=== PATIENT | female | born 1960 | race Caucasian/White ===

== ENCOUNTER → 2018-12-30 14:15 | Outpatient (CLI) | payer MEDICARE, MEDICAID | END | disposition home or self-care (01) | LOC: D.MRI 14:15 | PROVIDERS: ATTEND Orthopaedic Surgery | DX: M25.551 Pain in right hip (principal) ==

== ENCOUNTER → 2019-11-17 12:53 | Outpatient (CLI) | payer MEDICARE, MEDICAID ==
[2019-11-17 13:41] LABS: BASOPHILS 0.3 % (0-2); EOSINOPHILS 2.5 % (0-7); HEMATOCRIT 46.8 % (36.0-48.0); HEMOGLOBIN 15.3 g/dL (12-16); LYMPHOCYTES 45.6 % (15-50); MCH 30.3 pg (26.0-34.0); MCHC 32.7 g/dL (31.0-37.0); MCV 92.7 fL (80.0-100.0); MEAN PLATELET VOLUME 9.3 fL (7.4-10.4); MONOCYTES 8.1 % (2-11); NEUTROPHILS 43.5 % (40-80); PLATELET COUNT 181 10x3/uL (130-400); RBC 5.05 10x6/uL (4.00-5.40); RDW 13.8 % (11.5-14.5); WBC 5.9 10x3/uL (4.8-10.8)
[2019-11-17 14:10] LABS: APTT 26.4 SECONDS (22.8-39.4); INR 0.99 (0.85-1.17)
[2019-11-17 14:24] LABS: ALBUMIN 3.6 g/dL (3.4-5.0); ANION GAP 12.2 mmol/L (8-16); BILIRUBIN - TOTAL 0.28 mg/dL (0.2-1.3); CALCIUM 8.6 mg/dL (8.5-10.1); CARBON DIOXIDE 27.5 mmol/L (21.0-32.0); CREATININE - SERUM 1.3 mg/dL (0.6-1.3); POTASSIUM - SERUM 3.7 mmol/L (3.5-5.1); PROTEIN - SERUM 6.9 g/dL (6.4-8.2)
== END | disposition home or self-care (01) ==
LOC: D.LAB 12:53
PROVIDERS: ATTEND Internal Medicine Hematology & Oncology
DX: D68.59 Other primary thrombophilia (principal); M25.559 Pain in unspecified hip; M87.859 Other osteonecrosis, unspecified femur

== ENCOUNTER 2019-12-10 05:42 | Inpatient (IN) | payer MEDICARE ==
[~2019-12-10] VITALS: Ht 170.2 cm; Wt 136.3 kg
--- NOTE | ~2019-12-10 | OP ---
PATIENT NAME: MCKINLEY ROBERTO MEDICAL RECORD: [id number] :62 LOCATION:[facility] ADMISSION DATE:12/10/19 SURGEON: LUDWIG GANT MD DATE OF OPERATION: 12/13/2019 PREOPERATIVE DIAGNOSIS: Acute cholecystitis. POSTOPERATIVE DIAGNOSES: 1. Acute gangrenous cholecystitis. 2. Hepatomegaly. PROCEDURE: 1. Laparoscopic cholecystectomy. 2. Intraoperative cholangiography without immediate surgeon interpretation. 3. A 14-gauge core needle liver biopsy. DRAINS: A 10-Occitan round fully fluted closed suction drainage system. SURGEON: Ludwig Gant MD FLEET SALES ASSOCIATE: None. BLOOD LOSS: 50 cc. ANESTHESIA: General. COMPLICATIONS: None. The risks, possible complications and alternatives to the procedure were explained to the patient. She elects to proceed. The discussion specifically included, but was not limited to, bleeding requiring emergency reoperation, infection and open procedure. OPERATIVE COURSE: The patient was conveyed to the operating room electively on 12/11/2019. General anesthesia was induced by the anesthesia staff. The abdomen was sterilely prepped and draped. A Veress needle was inserted through the skin anthony in the left upper quadrant. CO2 insufflation was begun. Once a sufficient pneumoperitoneum had been achieved, a 5-mm trocar was inserted through an incision in the right upper quadrant. During insertion of the Veress needle and the trocar, there was no apparent injury to the bowels, any intraperitoneal or retroperitoneal structures. A 5-mm trocar was inserted in the epigastrium. Another 5-mm trocar was inserted far laterally in the right upper quadrant. A 12-mm trocar was inserted through an incision at the umbilicus. An abdominal survey was undertaken. The indication for the liver biopsy was hepatomegaly. Under laparoscopic guidance, I percutaneously accessed the right upper quadrant utilizing a 14-gauge core biopsy device. Cores were obtained over the convexity of the liver. The biopsy sites were made hemostatic with electrocautery. I then advanced a cholangiogram trocar. I punctured the fundus of the gallbladder. I aspirated bile. I then injected dye. Real time cholangiographic images were obtained. These were sent to the radiologist for OPERATIVE REPORT [id number] MCKINLEY ROBERTO interpretation. I aspirated bile and removed the cholangiogram trocar. The gallbladder was grasped and retracted cephalad. The infundibulum was grasped and retracted laterally. Blunt dissection was begun in the triangle of Calot. Two cystic arteries were identified. These were clipped multiply and divided between clips. The cystic duct was quite enlarged. I examined the triangle of Calot carefully and was confident that the ductal structure that I thought was enlarged, was in fact the cystic duct. The cystic duct was going to be too large to clip. I changed out the epigastric 5-mm trocar for a 12-mm trocar. I then advanced an Endo-JASSI with a white load. I stapled across the cystic duct just proximal to the infundibulum with the Endo-JASSI type stapler utilizing a white load. The gallbladder was then excised from its bed in the liver. It was placed within a bag retrieval device and was withdrawn through the umbilical fascia defect. A 12-mm trocar was replaced at the umbilicus. CO2 insufflation was begun. Once a sufficient pneumoperitoneum had been achieved, I examined the abdomen. I irrigated and aspirated the right upper quadrant. There was no bleeding even at low pressure of 8. Through one of the right upper quadrant trocars, I advanced a 10-Occitan Johnathan drain, which was going to be an indicator drain. The Tera-Edgardo suture closure device and 0 Vicryl sutures were used to close the umbilicus. There was an umbilical hernia defect which was not incarcerated. Also, some diastasis of the rectus muscles inferior to the umbilicus. All trocars were removed and the abdomen desufflated. The skin at the upper trocar site was closed with interrupted intracuticular 3-0 Vicryls. The skin at the umbilicus was closed with interrupted 4-0 Vicryl Rapide sutures. The patient was then extubated and conveyed to post-anesthesia care unit where she was in stable condition. TRANSINT:[id number] Voice Confirmation ID: [id number] DOCUMENT ID: [id number] LUDWIG GANT MD CC: STONEY NAYLOR [id number] DICTATION DATE: 12/13/191415 SHIPFITTER APPRENTICE: 12/13/192158 ADM IN [facility] [facility] [address] [place] [address]
[2019-12-10 08:00] VITALS: BP 128/85
[2019-12-10 08:25] LABS: CALC OSMOLALITY 280 mosm/kg (275-300); CARBON DIOXIDE 28.9 mmol/L (21.0-32.0); CHLORIDE - SERUM 104 mmol/L (98-107); CREATININE - SERUM 0.8 mg/dL (0.6-1.3); GLUCOSE 167 mg/dL (74-106); POTASSIUM - SERUM 4.3 mmol/L (3.5-5.1); SODIUM 140 mmol/L (136-145); UREA NITROGEN 7 mg/dL (7-18); eGFR NON AFRICAN AMERICAN 78 mL/min (90-120)
[2019-12-10 08:31] LABS: ALBUMIN 3.3 g/dL (3.4-5.0); ALKALINE PHOSPHATASE 101 U/L (30-120); ALT (SGPT) 21 U/L (10-68); AMYLASE - SERUM 26 U/L (25-115); BILIRUBIN - TOTAL 0.31 mg/dL (0.2-1.3); LIPASE 61 U/L (73-393); PROTEIN - SERUM 6.9 g/dL (6.4-8.2)
[2019-12-10 08:44] LABS: BASOPHILS 0 % (0-2); EOSINOPHILS 0 % (0-7); HEMATOCRIT 44.9 % (36.0-48.0); HEMOGLOBIN 14.8 g/dL (12-16); LYMPHOCYTES 9.9 % (15-50); MCH 30.3 pg (26.0-34.0); MCV 91.8 fL (80.0-100.0); MEAN PLATELET VOLUME 9.4 fL (7.4-10.4); MONOCYTES 2.1 % (2-11); PLATELET COUNT 145 10x3/uL (130-400); RBC 4.89 10x6/uL (4.00-5.40); RDW 13.7 % (11.5-14.5)
[2019-12-10 10:00] VITALS: BP 146/90
[2019-12-10 12:00] VITALS: BP 137/81
[2019-12-10] MEDS ORDERED: NORVASC10 MG PO (18:11)
[2019-12-10] MEDS ORDERED: DEPAKOTE250 MG PO (18:12)
[2019-12-10] MEDS ORDERED: NORTRIPTYLINE H50 MG PO (18:19)
[2019-12-10] MEDS ORDERED: SYNTHROID125 MCG PO (18:20)
[2019-12-10] MEDS ORDERED: SEROQUEL400 MG PO (18:20)
[2019-12-10] MEDS ORDERED: TRAZODONE TAB 100 PO (18:21)
[2019-12-10] MEDS ORDERED: TRINTELLIX20 MG PO (18:22)
[2019-12-10] MEDS ORDERED: AMBIEN5 MG PO (18:23)
[2019-12-10] MEDS ORDERED: VALIUM5 MG PO (18:23)
[2019-12-10 19:13] LABS: APTT 23.8 SECONDS (22.8-39.4); INR 0.97 (0.85-1.17); PROTIME 12.8 SECONDS (11.6-15.0)
[2019-12-10 20:00] VITALS: BP 131/80
--- NOTE | 2019-12-10 20:00 | NUR ---
PATIENT RESTING IN BED WATCHING TV. NO S/S OF ACUTE DISTRESS. NO C/O AT THIS TIME. PATIENT HAS RIGHT AC IV, NORMAL SALINE @ 125 ML/HR. IV IS PATENT WITHOUT REDNESS, SWELLING, OR TENDERNESS. PATIENT HAS BRUISING TO BILAT ARMS. PATIENT IS UP AD LINH TO BATHROOM. CALL LIGHT WITHIN REACH. WILL CONTINUE TO MONITOR.
--- NOTE | 2019-12-10 20:01 | NUR ---
PATIENT IN BED, NO S/S OF ACUTE DISTRESS. PATIENT C/O NAUSEA AND PAIN. I CHECKED THE EMAR AND BOTH HER ZOFRAN Q4, GIVEN AT 1800, AND MORPHINE Q3, GIVEN 1801. I TOLD PATIENT THAT SHE WOULDN'T BE ABLE TO HAVE ANYMORE UNTIL 2100 AND 2200. PATIENT PROCEEDED TO TELL ME THAT SHE WASN'T GIVEN THOSE MEDICATIONS AND THAT THE NURSE BEFORE ME LIED. I TOLD HER THAT THERE WAS NOTHING I COULD DO BUT TALK TO THE DAYSHIFT NURSE AND VERIFY THAT SHE GAVE THEM. NIKOLAI DOUGLASS, VERIFIED THAT SHE HAD GIVEN BOTH THE ZOFRAN AND MORPHINE. CALL LIGHT WITHIN REACH. WILL CONTINUE TO MONITOR.
[2019-12-11 03:35] VITALS: BP 131/80; BMI 44.7
[2019-12-11 04:00] VITALS: BP 128/83
--- NOTE | 2019-12-11 05:13 | NUR ---
I have reviewed this patient and I concur with the Shift Assessment completed by the Licensed Practical Nurse today this shift.
[2019-12-11 07:06] LABS: BASOPHILS 0.1 % (0-2); EOSINOPHILS 0.3 % (0-7); HEMATOCRIT 42.7 % (36.0-48.0); HEMOGLOBIN 13.5 g/dL (12-16); IMMATURE GRANULOCYTES 0.3 % (0-5); LYMPHOCYTES 19.2 % (15-50); MCH 29.8 pg (26.0-34.0); MCHC 31.6 g/dL (31.0-37.0); MEAN PLATELET VOLUME 9.3 fL (7.4-10.4); MONOCYTES 10.6 % (2-11); NEUTROPHILS 69.5 % (40-80); PLATELET COUNT 171 10x3/uL (130-400); RBC 4.53 10x6/uL (4.00-5.40); RDW 14.3 % (11.5-14.5); WBC 7.2 10x3/uL (4.8-10.8)
[2019-12-11 07:15] LABS: MCV 94.3 fL (80.0-100.0)
[2019-12-11 07:34] LABS: ALBUMIN 2.9 g/dL (3.4-5.0); ALKALINE PHOSPHATASE 90 U/L (30-120); BILIRUBIN - TOTAL 0.46 mg/dL (0.2-1.3); CALCIUM 7.9 mg/dL (8.5-10.1); CARBON DIOXIDE 28.2 mmol/L (21.0-32.0); CHLORIDE - SERUM 108 mmol/L (98-107); CREATININE - SERUM 0.8 mg/dL (0.6-1.3); MAGNESIUM - SERUM 2.3 mg/dL (1.8-2.4); POTASSIUM - SERUM 3.8 mmol/L (3.5-5.1); PROTEIN - SERUM 6.2 g/dL (6.4-8.2); SODIUM 143 mmol/L (136-145); UREA NITROGEN 8 mg/dL (7-18); eGFR NON AFRICAN AMERICAN 78 mL/min (90-120)
[2019-12-11 07:38] LABS: ALT (SGPT) 47 U/L (10-68); CALC OSMOLALITY 282 mosm/kg (275-300); GLUCOSE 104 mg/dL (74-106)
--- NOTE | 2019-12-11 08:10 | NUR ---
PT RESTING QUIETLY IN BED WITH EYES CLOSED. EASILY AROUSED STAFF ENTERS ROOM. REPORTS PAIN 4/10 AT THIS TIME, BUT DOES STATE PAIN BETTER CONTROLLED. IV TO RIGHT AC WITH NS @ 125ML/HR INFUSING VIA PUMP. SITE WITHOUT REDNESS OR EDEMA. DENIES FURTHER NEEDS AT THIS TIME. CL WITHIN REACH. ENCOURAGED TO CALL WITH NEEDS. CONTINUE POC
[2019-12-11 10:59] VITALS: BP 129/83
[2019-12-11 12:57] VITALS: Ht 170.2 cm; Wt 136.3 kg
[2019-12-11 13:02] VITALS: BP 114/69
[2019-12-11 18:27] VITALS: BP 114/58
[2019-12-11 20:00] VITALS: BP 119/75
--- NOTE | 2019-12-11 20:00 | NUR ---
PATIENT RESTING IN BED WITH DAUGHTER AT [facility]. NO S/S OF ACUTE DISTRESS. NO C/O AT THIS TIME. PATIENT IS ON 4L NASAL CANNULA. PATIENT HAS A RIGHT AC, NORMAL SALINE @ 125 ML/HR. IV IS PATENT WITHOUT REDNESS, SWELLING, OR TENDERNESS. PATIENT HAS 4 LAP SITES AND A RIGHT JEFFERSON DRAIN. PATIENT BELLY BUTTON DID HAVE SOME BLEEDING FROM LAP SITE THAT DID STOP. PATIENT IS UP WITH ASSISTANCE TO THE BATHROOM. CALL LIGHT WITHIN REACH. WILL CONTINUE TO MONITOR.
[2019-12-12 03:07] LABS: BILIRUBIN NEGATIVE (NEGATIVE); GLUCOSE NEGATIVE (NEGATIVE); KETONE SMALL mg/dL (NEGATIVE); NITRITE NEGATIVE (NEGATIVE); UROBILINOGEN NORMAL (NORMAL)
--- NOTE | 2019-12-12 05:00 | NUR ---
I have reviewed this patient and I concur with the Shift Assessment completed by the Licensed Practical Nurse today this shift.
[2019-12-12 07:53] LABS: BASOPHILS 0.1 % (0-2); EOSINOPHILS 0 % (0-7); HEMATOCRIT 39.9 % (36.0-48.0); HEMOGLOBIN 12.7 g/dL (12-16); IMMATURE GRANULOCYTES 0.1 % (0-5); MCH 30.2 pg (26.0-34.0); MCHC 31.8 g/dL (31.0-37.0); MEAN PLATELET VOLUME 9.2 fL (7.4-10.4); MONOCYTES 12.2 % (2-11); NEUTROPHILS 74.6 % (40-80); PLATELET COUNT 156 10x3/uL (130-400); RDW 14.3 % (11.5-14.5); WBC 8.9 10x3/uL (4.8-10.8)
[2019-12-12 08:09] LABS: ALBUMIN 2.6 g/dL (3.4-5.0); ANION GAP 8.7 mmol/L (8-16); BILIRUBIN - TOTAL 0.42 mg/dL (0.2-1.3); CALCIUM 7.4 mg/dL (8.5-10.1); CARBON DIOXIDE 29.2 mmol/L (21.0-32.0); CREATININE - SERUM 0.9 mg/dL (0.6-1.3); POTASSIUM - SERUM 3.9 mmol/L (3.5-5.1); PROTEIN - SERUM 5.8 g/dL (6.4-8.2)
--- NOTE | 2019-12-12 08:22 | NUR ---
RESTING IN BED, NO DISTRESS NOTED, CURING BIN OPERATOR STATES THAT PT REFUSEDS TO GET UP, IS USING BEDPAN, CONT TO MONITOR AND GET PT UP TODAY
[2019-12-12 09:57] VITALS: BP 129/79
[2019-12-12 14:09] VITALS: BP 127/82
[2019-12-12 17:04] VITALS: BP 119/66
[2019-12-12 21:00] VITALS: BP 104/65
[2019-12-13 07:00] LABS: ALBUMIN 2.3 g/dL (3.4-5.0); ANION GAP 12.6 mmol/L (8-16); BASOPHILS 0.2 % (0-2); BILIRUBIN - TOTAL 0.54 mg/dL (0.2-1.3); CALCIUM 7.8 mg/dL (8.5-10.1); CARBON DIOXIDE 26.2 mmol/L (21.0-32.0); CREATININE - SERUM 0.9 mg/dL (0.6-1.3); EOSINOPHILS 0.7 % (0-7); HEMATOCRIT 39.6 % (36.0-48.0); HEMOGLOBIN 12.7 g/dL (12-16); IMMATURE GRANULOCYTES 0.2 % (0-5); LYMPHOCYTES 19.8 % (15-50); MAGNESIUM - SERUM 2.1 mg/dL (1.8-2.4); MCH 30.3 pg (26.0-34.0); MCHC 32.1 g/dL (31.0-37.0); MCV 94.5 fL (80.0-100.0); MEAN PLATELET VOLUME 9.8 fL (7.4-10.4); MONOCYTES 10.5 % (2-11); NEUTROPHILS 68.6 % (40-80); PLATELET COUNT 169 10x3/uL (130-400); POTASSIUM - SERUM 3.8 mmol/L (3.5-5.1); PROTEIN - SERUM 5.8 g/dL (6.4-8.2); RBC 4.19 10x6/uL (4.00-5.40); RDW 14.3 % (11.5-14.5); WBC 8.7 10x3/uL (4.8-10.8)
[2019-12-13 09:01] VITALS: BP 123/76
--- NOTE | 2019-12-13 09:50 | NUR ---
RESTING IN BED, NO DISTRESS NOTED, STATES THAT SHE WISHES SHE COULD GET UP, BUT PT JUST ROLLS ABOUT IN BED, STATES THAT SHE HASNT PASSED ANY GAS, ENC PT TO GET UP AND MOVE ABOUT TO HELP WITH GAS
[2019-12-13 12:25] VITALS: BP 127/74
--- NOTE | 2019-12-13 12:59 | NUR ---
HAS BEEN IN BED ALL DAY, REFUSED TO GET UP FOR LUNCH
--- NOTE | 2019-12-13 14:30 | MORECARE ---
CASE MANAGEMENT DISCHARGE SUMMARY PATIENT: MCKINLEY ROBERTO UNIT: [id number] ADM DATE: 12/10/19 AGE: 59 : 62 SEX: F ROOM/BED: D.2201 AUTHOR: ELVA KENDRICK PHYSICIAN: REFERRING PHYSICIAN: STONEY NAYLOR DO DATE OF SERVICE: 12/13/19 Discharge Plan Patient Name: MCKINLEY ROBERTO [facility] [facility] 1960 Planned Disposition: Home Anticipated Discharge Date: Discharge Date: Expected LOS: Initial Reviewer: [email or web address] Initial Review Date: 12/10/2019 Generated: 12/13/19 3:30 pm DCPIA - Discharge Planning Initial Assessment Updated by [email or web address]: Roshni Esparza on 12/13/19 2:28 pm * Is the patient Alert and Oriented? Yes * How many steps to enter\exit or inside your home? RAMP/1 * PCP [facility] * Pharmacy [facility] [place] * Preadmission Environment Home Alone * ADLs Independent * Equipment Rolling Walker * List name and contact numbers for known caregivers / representatives who currently or will assist patient after discharge: PRAKASH (DTR) [phone] * Verbal permission to speak to the caregivers and representatives has been obtained from the patient. Yes * Community resources currently utilized None * Additional services required to return to the preadmission environment? Yes * Can the patient safely return to the preadmission environment? Yes * Has this patient been hospitalized within the prior 30 days at any hospital? No Patient Name: MCKINLEY ROBERTO Page [id number] at 1430 All edits/amendments must be made on the electronic document DICTATION DATE: 12/13/19 1430 BILL CUTTER: ELENO 12/13/19 1430 RPT#: [id number] DC DATE: STATUS: ADM IN [facility] [address] [place] [address] END OF REPORT
--- NOTE | 2019-12-13 14:37 | MORECARE ---
CASE MANAGEMENT DISCHARGE SUMMARY PATIENT: MCKINLEY ROBERTO UNIT: [id number] ADM DATE: 12/10/19 AGE: 59 : 62 SEX: F ROOM/BED: D.2201 AUTHOR: ELVA KENDRICK PHYSICIAN: REFERRING PHYSICIAN: STONEY NAYLOR DO DATE OF SERVICE: 12/13/19 Discharge Plan Patient Name: MCKINLEY ROBERTO Facility: [facility]:[place] : 1960 Planned Disposition: Home Anticipated Discharge Date: Discharge Date: Expected LOS: Initial Reviewer: [email or web address] Initial Review Date: 12/10/2019 Generated: 12/13/19 3:36 pm Comments DCP- Discharge Planning Updated by [email or web address]: Roshni Esparza on 12/13/19 1:[address] Patient Name: MCKINLEY ROBERTO Admission Status: ER Accout number: [id number] Admission Date: 12-10-2019 : 1960 Admission Diagnosis: Attending: STONEY NAYLOR Current LOS: 3 Anticipated DC Date: Planned Disposition: Home Primary Insurance: MEDICARE A & B Discharge Planning Comments: CM met with patient to complete initial dc planning assessment. CM educated patient on the CM role and verbal consent given by patient to complete assessment. CM verified patient's address, phone number, and emergency contact phone numbers. Patient lives at home alone and prior to admission she was independent with her ADL's/ States she has a rollator. States she is disabled and would like assistance at home. Pt is currently on 3.5 liters of continuous oxygen. CM anticipates the need for home and portable oxygen use. [facility] CM provided pt with number to area on ageing. At discharge patient plans to return home and feels this is a safe discharge. CM discussed availability of home health, rehab services, and medical equipment. Pt is in agreement for [facility] with physical therapy - JENIFFER signed. Patient denies other known discharge needs at this time. Transportation provider at discharge will be Yadi. CM will continue to follow and will assist as needed with dc plans/needs. Produce Production Team Member: Roshni Esparza DCPIA - Discharge Planning Initial Assessment Updated by [id number]: Roshni Esparza on 12/13/19 2:28 pm * Is the patient Alert and Oriented? Yes * How many steps to enter\exit or inside your home? RAMP/1 * [facility]CP [facility] * Pharmacy [facility] IN [place] * Preadmission Environment Home Alone * ADLs Independent * Equipment Rolling Walker * List name and contact numbers for known caregivers / representatives who currently or will assist patient after discharge: YADI (DTR) [phone] * Verbal permission to speak to the caregivers and representatives has been obtained from the patient. Yes * Community resources currently utilized None * Additional services required to return to the preadmission environment? Yes * Can the patient safely return to the preadmission environment? Yes * Has this patient been hospitalized within the prior 30 days at any hospital? No Coverage Notice Reviewer: [id number] Julissa Esparza Notice Issued Date-Time: 12/13/2019 14:00 Notice Type: Patient Choice Letter Notice Delivered To: Patient Relationship to Patient: Diploma Dental Assistant Name: Delivery Method: HAND - Hand Delivered Ursula Days: Prior Verbal Notification: Yes Recipient Understood Notice: Yes Recipient Signature: Yes Med Rec Note Co-signed by Attending: Coverage Notice Comment: [facility] for home and portable oxygen Last DP export: 12/13/19 1:30 p Patient Name: MCKINLEY ROBERTO Page [phone] at 1437 All edits/amendments must be made on the electronic document DICTATION DATE: 12/13/191436 ELECTRICIAN APPRENTICE POWERHOUSE: ELENO 12/13/19 1437 RPT#: [id number] DC DATE: STATUS: ADM IN [facility] [address] [place] [address] END OF REPORT
[2019-12-13 16:00] VITALS: BP 123/83
--- NOTE | 2019-12-13 19:20 | NUR ---
UP IN CHAIR, FAMILY IN ROOM
--- NOTE | 2019-12-13 19:51 | NUR ---
patient alert and orented with family at bedside. JEFFERSON drain removed per orders, tolarated well. no bleeding or discharge. dressing applied.
[2019-12-13 20:05] VITALS: BP 115/75
[2019-12-14] VITALS: BP 118/70
--- NOTE | 2019-12-14 03:54 | NUR ---
PATIENT REFUSED AM LABS.
[2019-12-14 04:00] VITALS: BP 121/74
--- NOTE | 2019-12-14 07:54 | NUR ---
ALERT AND ORIENTED. LUNGS CLEAR BILATERALLY. HEART SOUNDS S1 AND S2 HEARD IN ALL RILEY. BOWEL SOUNDS ACTIVE X 4. IV TO LEFT AC PATENT WITHOUT REDNESS. DENIES NEEDS. BED LOW. CALL POLANCO AND PERSONAL ITEMS IN REACH. WILL CONTINUE TO MONITOR.
[2019-12-14 08:39] VITALS: BP 137/82
[2019-12-14] MEDS ORDERED: ULTRAM50 MG PO (10:13)
[2019-12-14] MEDS ORDERED: COLACE100 MG PO (10:13)
--- NOTE | 2019-12-14 10:42 | NUR ---
PATIENT FAMILY MEMBER IN ROOM STATES PATIENT NEEDS TO DC SOON POSSIBLE D/T FAMILY MEMBER HAS TO BE AT WORK AT 1500 AND LIVES THREE HOURS AWAY. DEMOND WYATT PAGED.
[2019-12-14] MEDS ORDERED: ZITHROMAX250 MG PO (10:50)
--- NOTE | 2019-12-14 11:04 | NUR ---
RESTING RA 02 SAT 88% RESTING 20 SAT ON 2L/NC 95%
--- NOTE | 2019-12-14 11:04 | NUR ---
RT IN ROOM WITH PATIENT STATES O2 88% ON ROOM AIR AT REST. 95% ON 2L NC. HOME O2 TEST PLACED ON CHART.
[2019-12-14 12:29] VITALS: BP 115/83
--- NOTE | 2019-12-14 13:47 | NUR ---
PT RESTING COMFORTABLY IN BED. HUNG IV FLUIDS AND GAVE LOVENOX INJECTION. DENIES ANY NEEDS. BED IN LOWEST POSITION, BED RAILS X2, CALL LIGHT WITHIN REACH. WILL CONTINUE TO MONITOR.
--- NOTE | 2019-12-14 13:56 | MORECARE ---
CASE MANAGEMENT DISCHARGE SUMMARY PATIENT: MCKINLEY ROBERTO UNIT: [id number] ADM DATE: 12/10/19 AGE: 59 : 62 SEX: F ROOM/BED: D.2201 AUTHOR: MIREILLE,DOC PHYSICIAN: REFERRING PHYSICIAN: STONEY NAYLOR DO DATE OF SERVICE: 12/14/19 Discharge Plan Patient Name: MCKINLEY ROBERTO Facility: [facility]:[place] : 1960 Planned Disposition: Home Anticipated Discharge Date: Discharge Date: Expected LOS: Initial Reviewer: [email or web address] Initial Review Date: 12/10/2019 Generated: 12/14/19 2:55 pm Comments DCP- Discharge Planning Updated by [email or web address]: Diann Macdonald on 12/14/19 12:[address] CM met with patient to assess discuss discharge planning needs. She did qualify for home O2 and Portability. I will get that ordered for her. IMM served and explained. She will be discharging in the morning. DCP- Discharge Planning Updated by [email or web address]: Roshni Esparza on 12/13/19 1:[address] Patient Name: MCKINLEY ROBERTO Admission Status: ER Accout number: [id number] Admission Date: 12-10-2019 : 1960 Admission Diagnosis: Attending: STONEY NAYLOR Current LOS: 3 Anticipated DC Date: Planned Disposition: Home Primary Insurance: MEDICARE A & B Discharge Planning Comments: CM met with patient to complete initial dc planning assessment. CM educated patient on the CM role and verbal consent given by patient to complete assessment. CM verified patient's address, phone number, and emergency contact phone numbers. Patient lives at home alone and prior to admission she was independent with her ADL's/ States she has a rollator. States she is disabled and would like assistance at home. Pt is currently on 3.5 liters of continuous oxygen. CM anticipates the need for home and portable oxygen use. JENIFFER verbalized for [facility]. CM provided pt with number to area on ageing. At discharge patient plans to return home and feels this is a safe discharge. CM discussed availability of home health, rehab services, and medical equipment. Pt is in agreement for [facility] with physical therapy - JENIFFER signed. Patient denies other known discharge needs at this time. Transportation provider at discharge will be Yadi. CM will continue to follow and will assist as needed with dc plans/needs. Tongue Lining Stitcher: Roshni Esparza DCPIA - Discharge Planning Initial Assessment Updated by [email or web address]: Roshni Esparza on 12/13/19 2:28 pm * Is the patient Alert and Oriented? Yes * How many steps to enter\exit or inside your home? RAMP/1 * [facility]CP [facility] * Pharmacy [facility] [place] * Preadmission Environment Home Alone * ADLs Independent * Equipment Rolling Walker * List name and contact numbers for known caregivers / representatives who currently or will assist patient after discharge: YADI (DTR) [phone] * Verbal permission to speak to the caregivers and representatives has been obtained from the patient. Yes * Community resources currently utilized None * Additional services required to return to the preadmission environment? Yes * Can the patient safely return to the preadmission environment? Yes * Has this patient been hospitalized within the prior 30 days at any hospital? No Coverage Notice Reviewer: [id number] - Roshni Esparza Notice Issued Date-Time: 12/13/2019 14:00 Notice Type: Patient Choice Letter Notice Delivered To: Patient Relationship to Patient: Light Industrial Supervisor Name: Delivery Method: HAND - Hand Delivered Ursula Days: Prior Verbal Notification: Yes Recipient Understood Notice: Yes Recipient Signature: Yes Med Rec Note Co-signed by Attending: Coverage Notice Comment: [facility] for home and portable oxygen Last DP export: 12/13/19 1:37 p Patient Name: MCKINLEY ROBERTO Page [phone] at 1356 All edits/amendments must be made on the electronic document DICTATION DATE: 12/14/19 1354 RUBBER CALENDER HELPER: ELENO 12/14/19 1355 RPT#: [id number] DC DATE: STATUS: ADM IN [facility] [address] [place] [address] END OF REPORT
--- NOTE | 2019-12-14 14:03 | MORECARE ---
CASE MANAGEMENT DISCHARGE SUMMARY PATIENT: MCKINLEY ROBERTO UNIT: [id number] ADM DATE: 12/10/19 AGE: 59 : 62 SEX: F ROOM/BED: D.2201 AUTHOR: MIERILLEDOC PHYSICIAN: REFERRING PHYSICIAN: STONEY NAYLOR DO DATE OF SERVICE: 12/14/19 Discharge Plan Patient Name: MCKINLEY ROBERTO Facility: [facility]:[place] : 1960 Planned Disposition: Home Anticipated Discharge Date: Discharge Date: Expected LOS: Initial Reviewer: [email or web address] Initial Review Date: 12/10/2019 Generated: 12/14/19 3:03 pm Comments DCP- Discharge Planning Updated by [email or web address]: Diann Macdonald on 12/14/19 12:[address] I also asked the patient about a walker, she stated that she already has one ordered and she just needs to go pick it up. DCP- Discharge Planning Updated by [email or web address]: Diann Macdonald on 12/14/19 12:[address] CM met with patient to assess discuss discharge planning needs. She did qualify for home O2 and Portability. I will get that ordered for her. IMM served and explained. She will be discharging in the morning. DCP- Discharge Planning Updated by [email or web address]: Roshni Esparza on 12/13/19 1:[address] Patient Name: MCKINLEY ROBERTO Admission Status: ER Accout number: [id number] Admission Date: 12-10-2019 : 1960 Admission Diagnosis: Attending: STONEY NAYLOR Current LOS: 3 Anticipated DC Date: Planned Disposition: Home Primary Insurance: MEDICARE A & B Discharge Planning Comments: CM met with patient to complete initial dc planning assessment. CM educated patient on the CM role and verbal consent given by patient to complete assessment. CM verified patient's address, phone number, and emergency contact phone numbers. Patient lives at home alone and prior to admission she was independent with her ADL's/ States she has a rollator. States she is disabled and would like assistance at home. Pt is currently on 3.5 liters of continuous oxygen. CM anticipates the need for home and portable oxygen use. JENIFFER verbalized for [facility]. CM provided pt with number to area on ageing. At discharge patient plans to return home and feels this is a safe discharge. CM discussed availability of home health, rehab services, and medical equipment. Pt is in agreement for [facility] with physical therapy - JENIFFER signed. Patient denies other known discharge needs at this time. Transportation provider at discharge will be Yadi. CM will continue to follow and will assist as needed with dc plans/needs. Senior Business Architect: Roshni Esparza DCPIA - Discharge Planning Initial Assessment Updated by [id number]: Roshni Esparza on 12/13/19 2:28 pm * Is the patient Alert and Oriented? Yes * How many steps to enter\exit or inside your home? RAMP/1 * [facility]CP [facility] * Pharmacy [facility] [place] * Preadmission Environment Home Alone * ADLs Independent * Equipment Rolling Walker * List name and contact numbers for known caregivers / representatives who currently or will assist patient after discharge: YADI (DTR) [phone] * Verbal permission to speak to the caregivers and representatives has been obtained from the patient. Yes * Community resources currently utilized None * Additional services required to return to the preadmission environment? Yes * Can the patient safely return to the preadmission environment? Yes * Has this patient been hospitalized within the prior 30 days at any hospital? No Coverage Notice Reviewer: [id number] - Roshni Esparza Notice Issued Date-Time: 12/13/2019 14:00 Notice Type: Patient Choice Letter Notice Delivered To: Patient Relationship to Patient: High School Art Teacher Name: Delivery Method: HAND - Hand Delivered Ursula Days: Prior Verbal Notification: Yes Recipient Understood Notice: Yes Recipient Signature: Yes Med Rec Note Co-signed by Attending: Coverage Notice Comment: [facility] with PT in [facility] for home and portable oxygen Reviewer: [id number] - Diann Macdonald Notice Issued Date-Time: 12/14/2019 12:50 Notice Type: IM Admission Notice Notice Delivered To: Patient Relationship to Patient: High School Art Teacher Name: Delivery Method: HAND - Hand Delivered Ursula Days: Prior Verbal Notification: Recipient Understood Notice: Yes Recipient Signature: Yes Med Rec Note Co-signed by Attending: Coverage Notice Comment: Last DP export: 12/14/19 12:56 p Patient Name: MCKINLEY ROBERTO Page [phone] at 1403 All edits/amendments must be made on the electronic document DICTATION DATE: 12/14/191402 IN FLIGHT TECHNICIAN: ELENO 12/14/191402 RPT#: [id number] DC DATE: STATUS: ADM IN [facility] [address] [place] [address] END OF REPORT
--- NOTE | 2019-12-14 14:20 | MORECARE ---
CASE MANAGEMENT DISCHARGE SUMMARY PATIENT: MCKINLEY ROBERTO UNIT: [id number] ADM DATE: 12/10/19 AGE: 59 : 62 SEX: F ROOM/BED: D.2201 AUTHOR: MIREILLEDOC PHYSICIAN: REFERRING PHYSICIAN: STONEY NAYLOR DO DATE OF SERVICE: 12/14/19 Discharge Plan Patient Name: MCKINLEY ROBERTO Facility: [facility]:[place] : 1960 Planned Disposition: Home Anticipated Discharge Date: Discharge Date: Expected LOS: Initial Reviewer: [email or web address] Initial Review Date: 12/10/2019 Generated: 12/14/19 3:19 pm Comments DCP- Discharge Planning Updated by [email or web address]: Diann Macdonald on 12/14/19 12:[address] I also asked the patient about a walker, she stated that she already has one ordered and she just needs to go pick it up. DCP- Discharge Planning Updated by [email or web address]: Diann Macdonald on 12/14/19 12:[address] CM met with patient to assess discuss discharge planning needs. She did qualify for home O2 and Portability. I will get that ordered for her. IMM served and explained. She will be discharging in the morning. DCP- Discharge Planning Updated by [email or web address]: Roshni Esparza on 12/13/19 1:[address] Patient Name: MCKINLEY ROBERTO Admission Status: ER Accout number: [id number] Admission Date: 12-10-2019 : 1960 Admission Diagnosis: Attending: STONEY NAYLOR Current LOS: 3 Anticipated DC Date: Planned Disposition: Home Primary Insurance: MEDICARE A & B Discharge Planning Comments: CM met with patient to complete initial dc planning assessment. CM educated patient on the CM role and verbal consent given by patient to complete assessment. CM verified patient's address, phone number, and emergency contact phone numbers. Patient lives at home alone and prior to admission she was independent with her ADL's/ States she has a rollator. States she is disabled and would like assistance at home. Pt is currently on 3.5 liters of continuous oxygen. CM anticipates the need for home and portable oxygen use. JENIFFER verbalized for [employer]. CM provided pt with number to area on ageing. At discharge patient plans to return home and feels this is a safe discharge. CM discussed availability of home health, rehab services, and medical equipment. Pt is in agreement for [facility] with physical therapy - JENIFFER signed. Patient denies other known discharge needs at this time. Transportation provider at discharge will be Yadi. CM will continue to follow and will assist as needed with dc plans/needs. Substitute Nurse: Roshni Esparza DCPIA - Discharge Planning Initial Assessment Updated by [email or web address]: Roshni Esparza on 12/13/19 2:28 pm * Is the patient Alert and Oriented? Yes * How many steps to enter\exit or inside your home? RAMP/1 * PCP [facility] * Pharmacy [facility] IN [place] * Preadmission Environment Home Alone * ADLs Independent * Equipment Rolling Walker * List name and contact numbers for known caregivers / representatives who currently or will assist patient after discharge: YADI (DTR) [phone] * Verbal permission to speak to the caregivers and representatives has been obtained from the patient. Yes * Community resources currently utilized None * Additional services required to return to the preadmission environment? Yes * Can the patient safely return to the preadmission environment? Yes * Has this patient been hospitalized within the prior 30 days at any hospital? No External Providers External Provider: Lila Next Contact Date: Service Request Date: Service Type: Resolution: Reviewer: Comments: External Provider: MARY [facility] Next Contact Date: Service Request Date: Service Type: Resolution: Reviewer: Comments: Coverage Notice Reviewer: [id number] - Roshni Esparza Notice Issued Date-Time: 12/13/2019 14:00 Notice Type: Patient Choice Letter Notice Delivered To: Patient Relationship to Patient: Fur Dressing Supervisor Name: Delivery Method: HAND - Hand Delivered Ursula Days: Prior Verbal Notification: Yes Recipient Understood Notice: Yes Recipient Signature: Yes Med Rec Note Co-signed by Attending: Coverage Notice Comment: [facility] with PT in [facility] for home and portable oxygen Reviewer: [email or web address] Julissa Macdonald Notice Issued Date-Time: 12/14/2019 12:50 Notice Type: IM Admission Notice Notice Delivered To: Patient Relationship to Patient: Fur Dressing Supervisor Name: Delivery Method: HAND - Hand Delivered Ursula Days: Prior Verbal Notification: Recipient Understood Notice: Yes Recipient Signature: Yes Med Rec Note Co-signed by Attending: Coverage Notice Comment: Last DP export: 12/14/19 1:03 p Patient Name: MCKINLEY ROBERTO Page [id number] at 1420 All edits/amendments must be made on the electronic document DICTATION DATE: 12/14/191418 RUBBER PRESS TENDER: ELENO 12/14/191418 RPT#: [id number] DC DATE: STATUS: ADM IN [facility] [address] [place] [address] END OF REPORT
[2019-12-14 17:15] VITALS: BP 142/86
--- NOTE | 2019-12-14 19:45 | NUR ---
A&O X 4. PAIN 7/10 TO LLQ OF ABDOMEN. 5 LAP SITES TO ABD, CDI. PASSING GAS, BUT NO BM. NO FURTHER NEEDS VOICED, CTM.
[2019-12-14 20:00] VITALS: BP 141/83
--- NOTE | 2019-12-15 02:55 | NUR ---
I have reviewed this patient and I concur with the Shift Assessment completed by the Licensed Practical Nurse today this shift.
[2019-12-15 04:30] VITALS: BP 127/89
[2019-12-15 08:00] VITALS: BP 119/80
--- NOTE | 2019-12-15 10:19 | MORECARE ---
CASE MANAGEMENT DISCHARGE SUMMARY PATIENT: MCKINLEY ROBERTO UNIT: [id number] ADM DATE: 12/10/19 AGE: 59 : 62 SEX: F ROOM/BED: D.2201 AUTHOR: ELVA KENDRICK PHYSICIAN: REFERRING PHYSICIAN: STONEY NAYLOR DO DATE OF SERVICE: 12/15/19 Discharge Plan Patient Name: MCKINLEY ROBERTO Facility: [facility]:[place] : 1960 Planned Disposition: Home Anticipated Discharge Date: Discharge Date: Expected LOS: Initial Reviewer: [email or web address] Initial Review Date: 12/10/2019 Generated: 12/15/19 11:19 am Comments DCP- Discharge Planning Updated by [email or web address]: Diann Renae on 12/15/19 9:[address] Patient will be discharging home with [facility] in [place]. She also will get O2 from [facility]. They will deliver it to the hospital. I have called Jade at [facility] to give her a physical address [address] [place] [address] DCP- Discharge Planning Updated by [email or web address]: Diann Renae on 12/14/19 12:[address] I also asked the patient about a walker, she stated that she already has one ordered and she just needs to go pick it up. DCP- Discharge Planning Updated by [id number]: Diann Reyesken on 12/14/19 12:[address] CM met with patient to assess discuss discharge planning needs. She did qualify for home O2 and Portability. I will get that ordered for her. IMM served and explained. She will be discharging in the morning. DCP- Discharge Planning Updated by [email or web address]: Roshni Esparza on 12/13/19 1:[address] Patient Name: MCKINLEY ROBERTO Admission Status: ER Accout number: [id number] Admission Date: 12-10-2019 : 1960 Admission Diagnosis: Attending: STONEY NAYLOR Current LOS: 3 Anticipated DC Date: Planned Disposition: Home Primary Insurance: MEDICARE A & B Discharge Planning Comments: CM met with patient to complete initial dc planning assessment. CM educated patient on the CM role and verbal consent given by patient to complete assessment. CM verified patient's address, phone number, and emergency contact phone numbers. Patient lives at home alone and prior to admission she was independent with her ADL's/ States she has a rollator. States she is disabled and would like assistance at home. Pt is currently on 3.5 liters of continuous oxygen. CM anticipates the need for home and portable oxygen use. [facility] CM provided pt with number to area on ageing. At discharge patient plans to return home and feels this is a safe discharge. CM discussed availability of home health, rehab services, and medical equipment. Pt is in agreement for [facility] with physical therapy - JENIFFER signed. Patient denies other known discharge needs at this time. Transportation provider at discharge will be Yadi. CM will continue to follow and will assist as needed with dc plans/needs. Running Rigger: Roshni Esparza DCPIA - Discharge Planning Initial Assessment Updated by [email or web address]: Roshni Esparza on 12/13/19 2:28 pm * Is the patient Alert and Oriented? Yes * How many steps to enter\exit or inside your home? RAMP/1 * PCP [facility] * Pharmacy [facility] IN [place] * Preadmission Environment Home Alone * ADLs Independent * Equipment Rolling Walker * List name and contact numbers for known caregivers / representatives who currently or will assist patient after discharge: YADI (DTR) [phone] * Verbal permission to speak to the caregivers and representatives has been obtained from the patient. Yes * Community resources currently utilized None * Additional services required to return to the preadmission environment? Yes * Can the patient safely return to the preadmission environment? Yes * Has this patient been hospitalized within the prior 30 days at any hospital? No Coverage Notice Reviewer: [id number] - Roshni Esparza Notice Issued Date-Time: 12/13/2019 14:00 Notice Type: Patient Choice Letter Notice Delivered To: Patient Relationship to Patient: Novelty Balloon Assembler And Packer Name: Delivery Method: HAND - Hand Delivered Ursula Days: Prior Verbal Notification: Yes Recipient Understood Notice: Yes Recipient Signature: Yes Med Rec Note Co-signed by Attending: Coverage Notice Comment: [facility] with PT in [facility] for home and portable oxygen Reviewer: [id number] - Diann Macdonald Notice Issued Date-Time: 12/14/2019 12:50 Notice Type: IM Admission Notice Notice Delivered To: Patient Relationship to Patient: Novelty Balloon Assembler And Packer Name: Delivery Method: HAND - Hand Delivered Ursula Days: Prior Verbal Notification: Recipient Understood Notice: Yes Recipient Signature: Yes Med Rec Note Co-signed by Attending: Coverage Notice Comment: Last DP export: 12/14/19 1:20 p Patient Name: MCKINLEY ROBERTO Page [id number] at 1019 All edits/amendments must be made on the electronic document DICTATION DATE: 12/15/19 1019 TEACHER VOCAL: ELENO 12/15/19 1019 RPT#: [id number] DC DATE: STATUS: ADM IN [facility] [address] [place] [address] END OF REPORT
--- NOTE | 2019-12-15 11:27 | NUR ---
DISCHARGE EDUCATION PROVIDED BOTH WRITTEN AND VERBAL. VERBALIZED UNDERSTANDING. DENIES FURTHER QUESTIONS. IV REMOVED FROM LEFT AC WITH TIP INTACT. O2 DELIVERED TO HOSPITAL. WAITING RIDE.
--- NOTE | 2019-12-15 12:39 | NUR ---
PATIENT DC HOME WITH ALL BELONGING.
--- NOTE | 2019-12-17 13:33 | MORECARE ---
CASE MANAGEMENT DISCHARGE SUMMARY PATIENT: MCKINLEY ROBERTO UNIT: [id number] ADM DATE: 12/10/19 AGE: 59 : 62 SEX: F ROOM/BED: D.2201 AUTHOR: ELVA KENDRICK PHYSICIAN: REFERRING PHYSICIAN: STONEY NAYLOR DO DATE OF SERVICE: 12/17/19 Discharge Plan Patient Name: MCKINLEY ROBERTO Facility: [facility]:[place] : 1960 Planned Disposition: Home Anticipated Discharge Date: Discharge Date: 12/15/2019 Expected LOS: Initial Reviewer: [id number] Initial Review Date: 12/10/2019 Generated: 12/17/19 2:32 pm Comments DCP- Discharge Planning Updated by [email or web address]: Diann Renae on 12/15/19 9:[address] Patient will be discharging home with [facility] in [place]. She also will get O2 from [facility]. They will deliver it to the hospital. I have called Jade at [facility] to give her a physical address [address] [place] [address] DCP- Discharge Planning Updated by [email or web address]: Diann Macdonald on 12/14/19 12:[address] I also asked the patient about a walker, she stated that she already has one ordered and she just needs to go pick it up. DCP- Discharge Planning Updated by [email or web address]: Diann Renae on 12/14/19 12:[address] CM met with patient to assess discuss discharge planning needs. She did qualify for home O2 and Portability. I will get that ordered for her. IMM served and explained. She will be discharging in the morning. DCP- Discharge Planning Updated by [email or web address]: Roshni Esparza on 12/13/19 1:[address] Patient Name: MCKINLEY ROBERTO Admission Status: ER Accout number: [id number] Admission Date: 12-10-2019 : 1960 Admission Diagnosis: Attending: STONEY NAYLOR Current LOS: 3 Anticipated DC Date: Planned Disposition: Home Primary Insurance: MEDICARE A & B Discharge Planning Comments: CM met with patient to complete initial dc planning assessment. CM educated patient on the CM role and verbal consent given by patient to complete assessment. CM verified patient's address, phone number, and emergency contact phone numbers. Patient lives at home alone and prior to admission she was independent with her ADL's/ States she has a rollator. States she is disabled and would like assistance at home. Pt is currently on 3.5 liters of continuous oxygen. CM anticipates the need for home and portable oxygen use. JENIFFER verbalized for [facility]. CM provided pt with number to area on ageing. At discharge patient plans to return home and feels this is a safe discharge. CM discussed availability of home health, rehab services, and medical equipment. Pt is in agreement for [facility] with physical therapy - JENIFFER signed. Patient denies other known discharge needs at this time. Transportation provider at discharge will be Yadi. CM will continue to follow and will assist as needed with dc plans/needs. Marketing Representative: Roshni Esparza DCPIA - Discharge Planning Initial Assessment Updated by [id number]: Roshni Esparza on 12/13/19 2:28 pm * Is the patient Alert and Oriented? Yes * How many steps to enter\exit or inside your home? RAMP/1 * PCP [facility] * Pharmacy [facility] IN [place] * Preadmission Environment Home Alone * ADLs Independent * Equipment Rolling Walker * List name and contact numbers for known caregivers / representatives who currently or will assist patient after discharge: YADI (DTR) [phone] * Verbal permission to speak to the caregivers and representatives has been obtained from the patient. Yes * Community resources currently utilized None * Additional services required to return to the preadmission environment? Yes * Can the patient safely return to the preadmission environment? Yes * Has this patient been hospitalized within the prior 30 days at any hospital? No Coverage Notice Reviewer: [id number] - Roshni Esparza Notice Issued Date-Time: 12/13/2019 14:00 Notice Type: Patient Choice Letter Notice Delivered To: Patient Relationship to Patient: Cross Country Coach Name: Delivery Method: HAND - Hand Delivered Ursula Days: Prior Verbal Notification: Yes Recipient Understood Notice: Yes Recipient Signature: Yes Med Rec Note Co-signed by Attending: Coverage Notice Comment: [facility] in [facility] for home and portable oxygen Reviewer: [id number] - Diann Macdonald Notice Issued Date-Time: 12/14/2019 12:50 Notice Type: IM Admission Notice Notice Delivered To: Patient Relationship to Patient: Cross Country Coach Name: Delivery Method: HAND - Hand Delivered Ursula Days: Prior Verbal Notification: Recipient Understood Notice: Yes Recipient Signature: Yes Med Rec Note Co-signed by Attending: Coverage Notice Comment: Last DP export: 12/15/19 9:19 a Patient Name: MCKINLEY ROBERTO Page [id number] at 1333 All edits/amendments must be made on the electronic document DICTATION DATE: 12/17/19 1332 SCHOOL SECRETARY: ELENO 12/17/19 1332 RPT#: [id number] DC DATE:12/15/19 STATUS: DIS IN [facility] [address] [place] [address] END OF REPORT
== END 2019-12-15 12:39 | disposition home or self-care (01) | DRG 417 ==
LOC: D.ER 05:42 → OBSVTIME 06:14 → D.M2 06:14 → D.MS 06:16 → D.M2 06:16 → D.MS 09:14 → D.ER 09:14 → D.MS 13:52
PROVIDERS: Emergency Medicine; Family Medicine; ADMIT Family Medicine; ATTEND Family Medicine
PROC: 0FT44ZZ Resection of Gallbladder, Percutaneous Endoscopic Approach (ICD-10-PCS; principal; 2019-12-13)
PROC: 0FB04ZX Excision of Liver, Percutaneous Endoscopic Approach, Diagnostic (ICD-10-PCS; 2019-12-13)
PROC: BF001ZZ Plain Radiography of Bile Ducts using Low Osmolar Contrast (ICD-10-PCS; 2019-12-13)
DX: K80.60 Calculus of gallbladder and bile duct with cholecystitis, unspecified, without obstruction (principal); J96.00 Acute respiratory failure, unspecified whether with hypoxia or hypercapnia; K82.1 Hydrops of gallbladder; K82.A1 Gangrene of gallbladder in cholecystitis; I10 Essential (primary) hypertension; F32.9 Major depressive disorder, single episode, unspecified